=== PATIENT | female | born 1980 | race African-American/Black ===

== ENCOUNTER 2020-07-27 12:17 | Emergency (ER) | payer OTHER ==
[~2020-07-27] VITALS: Ht 167.6 cm; Wt 81.7 kg
--- NOTE | 2020-07-27 14:22 | EKG ---
[address] [address] ELECTROCARDIOGRAM REPORT Name: TALAVERAIVONNE MCCRAY Room #: [facility].R.#: [id number] Admission: Attend Phys: Discharge: Date of : 82 Report #: [id number] [facility] ED Test Date: 2020-07-27 Test Time: 12:20:07 Pat Name: IVONNE TALAVERA Department: Room: Gender: F Reprint Sorter: MICHAEL : 1980 Requested By: Tess Mustafa Order Number: [id number] MD: Sterling Villanueva Measurements Intervals [place] Rate: 88 P: 51 [place]: 156 QRS: 28 QRSD: 74 T: 25 QT: 355 QTc: 430 Interpretive Statements Sinus rhythm No previous ECG available for comparison Electronically Signed On 07-27-2020 14:22:42 PLUNGER SCOOP OPERATOR by Sterling Villanueva [email or web address] <ELECTRONICALLY SIGNED> By: Sterling Villanueva MD, [facility] 07/27/20 1422 1220 1220 Sterling Villanueva MD, FACC /EPI
[2020-07-27 14:50] LABS: URINE BILIRUBIN NEGATIVE (Negative); URINE BLOOD 2+ (Negative); URINE CLARITY CLEAR; URINE COLOR YELLOW; URINE GLUCOSE-RANDOM* 3+ (Negative); URINE KETONES 3+ (Negative); URINE LEUKOCYTES-REFLEX NEGATIVE (Negative); URINE NITRITE-REFLEX NEGATIVE (Negative); URINE PROTEIN (DIPSTICK) NEGATIVE (Negative); URINE UROBILINOGEN 0.2 E.U./dl (0.2-1.0)
[2020-07-27 14:58] LABS: CASTS None Seen /LPF (None Seen); CRYSTALS None Seen /LPF (None Seen); SQUAMOUS 0-3 Few /LPF (0-3)
[2020-07-27 14:59] LABS: URINE WBC-REFLEX 0-5 Rare /HPF (0-5)
[2020-07-27 15:00] LABS: BACTERIA-REFLEX 1-9 Few /HPF (None Seen); URINE RBC 0-2 Rare /HPF (0-2)
[2020-07-27 15:03] LABS: ABSOLUTE NEUTROPHILS 8.7 thou/uL (1.4-8.2); BASOPHILS 0.5 % (0.0-2.0); EOSINOPHILS 0.4 % (0.0-3.0); HEMATOCRIT 39.7 % (37.0-47.0); HEMOGLOBIN 13.6 gm/dL (12.0-15.0); LYMPHOCYTES 17.4 % (24.0-44.0); MCH 29.5 pg (26.0-34.0); MCHC 34.2 g/dL (28.0-37.0); MCV 86.1 fL (80.0-100.0); MONOCYTES 3.3 % (1.0-8.0); PLATELET COUNT 363 thou/uL (150-400); POLYS 78.4 % (36.0-66.0); RBC 4.61 mil/uL (4.20-5.00); RDW 12.7 % (10.5-14.5); WBC 11.1 thou/uL (4.0-11.0)
[2020-07-27 15:09] LABS: ANION GAP 9 mmol/L (7-16); BUN 6 mg/dL (7-18); CALCIUM 9.4 mg/dL (8.5-10.1); CHLORIDE 97 mmol/L (98-107); CO2 23 mmol/L (21-32); CREATININE 0.7 mg/dL (0.6-1.0); GLUCOSE 299 mg/dL (74-106); POTASSIUM 3.7 mmol/L (3.5-5.1); SODIUM 129 mmol/L (136-145)
[2020-07-27 15:19] LABS: ALBUMIN 3.4 g/dL (3.4-5.0); DIRECT BILIRUBIN < 0.1 mg/dL (<0.1-0.2); SGOT 10 U/L (15-37); SGPT 17 U/L (14-59); TOTAL BILIRUBIN 0.4 mg/dL (0.2-1.0); TOTAL PROTEIN 8.1 g/dL (6.4-8.2); TROPONIN-I <0.06 ng/mL (<0.06)
[2020-07-27] MEDS ORDERED: PROTONIX40 M2 PO (17:43)
[2020-07-27] MEDS ORDERED: HYDROCODON-ACE1 EA10 PO (18:02)
[2020-07-27] MEDS ORDERED: KEFLEX500 M1 PO (18:02)
[2020-07-27] MEDS ORDERED: BENTYL 10 MG CA10 M1 PO (18:02)
[2020-07-27] MEDS ORDERED: ZOFRAN ODT4 MG PO (18:02)
[2020-07-27] MEDS ORDERED: FLAGYL500 M1 PO (18:02)
[2020-07-27 18:12] VITALS: BP 147/99
== END 2020-07-27 18:12 | disposition home or self-care (01) ==
LOC: ER 12:17
PROVIDERS: Emergency Medicine
DX: N39.0 Urinary tract infection, site not specified (principal); A59.09 Other urogenital trichomoniasis; R10.13 Epigastric pain; R07.89 Other chest pain; R11.2 Nausea with vomiting, unspecified; E66.9 Obesity, unspecified; K21.9 Gastro-esophageal reflux disease without esophagitis; Z68.29 Body mass index [BMI] 29.0-29.9, adult

== ENCOUNTER 2020-09-29 19:32 | Emergency (ER) | payer OTHER ==
[~2020-09-29] VITALS: Ht 172.7 cm; Wt 106.1 kg
[~2020-09-29 19:32] MED LIST: BENTYL 10 MG CA10 M1 PO; FLAGYL500 M1 PO; HYDROCODON-ACE1 EA10 PO; KEFLEX500 M1 PO; PROTONIX40 M2 PO; ZOFRAN ODT4 MG PO
[2020-09-29 20:29] LABS: URINE BILIRUBIN NEGATIVE (Negative); URINE BLOOD NEGATIVE (Negative); URINE CLARITY CLEAR; URINE COLOR YELLOW; URINE GLUCOSE-RANDOM* 2+ (Negative); URINE KETONES 1+ (Negative); URINE LEUKOCYTES-REFLEX NEGATIVE (Negative); URINE NITRITE-REFLEX NEGATIVE (Negative); URINE PROTEIN (DIPSTICK) TRACE (Negative); URINE UROBILINOGEN 0.2 E.U./dl (0.2-1.0)
[2020-09-29 20:41] LABS: ABSOLUTE NEUTROPHILS 11.5 thou/uL (1.4-8.2); BASOPHILS 0.6 % (0.0-2.0); EOSINOPHILS 0.2 % (0.0-3.0); HEMATOCRIT 41.8 % (37.0-47.0); HEMOGLOBIN 14.7 gm/dL (12.0-15.0); LYMPHOCYTES 18.2 % (24.0-44.0); MCH 30.3 pg (26.0-34.0); MCHC 35.1 g/dL (28.0-37.0); MCV 86.2 fL (80.0-100.0); MONOCYTES 3.6 % (1.0-8.0); PLATELET COUNT 377 thou/uL (150-400); POLYS 77.4 % (36.0-66.0); RBC 4.85 mil/uL (4.20-5.00); RDW 13.2 % (10.5-14.5); WBC 14.9 thou/uL (4.0-11.0)
[2020-09-29 20:49] LABS: CALCIUM 9.3 mg/dL (8.5-10.1); CREATININE 0.8 mg/dL (0.6-1.0); POTASSIUM 4.2 mmol/L (3.5-5.1)
[2020-09-29 20:55] LABS: ALBUMIN 3.4 g/dL (3.4-5.0); DIRECT BILIRUBIN 0.1 mg/dL (<0.1-0.2); TOTAL BILIRUBIN 0.4 mg/dL (0.2-1.0); TOTAL PROTEIN 8.8 g/dL (6.4-8.2)
[2020-09-30] MEDS ORDERED: BENTYL 10 MG CA10 M1 PO (00:32)
[2020-09-30] MEDS ORDERED: LEVAQUIN 500 M500 MG PO (00:32)
[2020-09-30] MEDS ORDERED: PROTONIX40 MG PO (00:32)
[2020-09-30] MEDS ORDERED: FLAGYL500 M1 PO (00:32)
[2020-09-30] MEDS ORDERED: ZOFRAN ODT4 MG PO (00:32)
[2020-09-30 00:39] VITALS: BP 157/95
== END 2020-09-30 00:45 | disposition home or self-care (01) ==
LOC: ER 19:32
PROVIDERS: Physician Assistant
DX: K29.70 Gastritis, unspecified, without bleeding (principal); K80.50 Calculus of bile duct without cholangitis or cholecystitis without obstruction; R73.9 Hyperglycemia, unspecified

== ENCOUNTER 2020-10-01 13:26 | Inpatient (IN) | payer OTHER ==
[~2020-10-01] VITALS: Ht 172.7 cm; Wt 106.6 kg
[~2020-10-01 13:26] MED LIST changes: +LEVAQUIN 500 M500 MG PO; +PROTONIX40 MG PO
[2020-10-01 13:31] VITALS: BP 142/83
[2020-10-01 14:57] LABS: ABSOLUTE NEUTROPHILS 8.9 thou/uL (1.4-8.2); BASOPHILS 0.7 % (0.0-2.0); EOSINOPHILS 0.4 % (0.0-3.0); HEMATOCRIT 40.6 % (37.0-47.0); HEMOGLOBIN 14.3 gm/dL (12.0-15.0); LYMPHOCYTES 16.5 % (24.0-44.0); MCH 30.1 pg (26.0-34.0); MCHC 35.3 g/dL (28.0-37.0); MCV 85.3 fL (80.0-100.0); MONOCYTES 3.6 % (1.0-8.0); PLATELET COUNT 373 thou/uL (150-400); POLYS 78.8 % (36.0-66.0); RBC 4.75 mil/uL (4.20-5.00); RDW 13.4 % (10.5-14.5); WBC 11.2 thou/uL (4.0-11.0)
[2020-10-01 15:02] LABS: CALCIUM 9.1 mg/dL (8.5-10.1); CREATININE 0.8 mg/dL (0.6-1.0); POTASSIUM 4.1 mmol/L (3.5-5.1)
[2020-10-01 15:08] LABS: ALBUMIN 3.3 g/dL (3.4-5.0); TOTAL BILIRUBIN 0.6 mg/dL (0.2-1.0); TOTAL PROTEIN 8.6 g/dL (6.4-8.2)
[2020-10-01 15:46] VITALS: BP 141/81
[2020-10-01 16:06] VITALS: BP 141/86
[2020-10-01 16:50] VITALS: BP 123/80
[2020-10-01 20:05] VITALS: BP 124/83
[2020-10-02 03:59] LABS: URINE BILIRUBIN NEGATIVE (Negative); URINE BLOOD NEGATIVE (Negative); URINE CLARITY CLEAR; URINE COLOR YELLOW; URINE GLUCOSE-RANDOM* NEGATIVE (Negative); URINE KETONES 1+ (Negative); URINE LEUKOCYTES-REFLEX NEGATIVE (Negative); URINE NITRITE-REFLEX NEGATIVE (Negative); URINE PROTEIN (DIPSTICK) NEGATIVE (Negative); URINE SPECIFIC GRAVITY 1.015 (1.005-1.035); URINE UROBILINOGEN 0.2 E.U./dl (0.2-1.0)
--- NOTE | 2020-10-02 04:24 | NUR ---
PT C/O ABD PAIN,MANAGED WITH MED.PT UP ADLIB IN HER ROOM.PT NPO SINCE ADMIT,MOUTH SWAB PROVIDED.PT HAVING EGD IN THE AM.UA GOTTEN,SENT DOWN TO THE LAB.IVF INFUSING ORDERED.PT SLEEPING ON HER BED AT THIS TIME.CALL LIGHT WITHIN REACH.
[2020-10-02 09:20] VITALS: BP 143/94
--- NOTE | 2020-10-02 11:18 | NUR ---
Assumed care of pt at 0700. Pt a&ox4. Pain controlled with prn pain meds. IVF infusing. GI consulted. Up ad monae. Call light within reach. Will continue to monitor.
[2020-10-02 16:45] VITALS: BP 128/74
[2020-10-02 20:00] VITALS: BP 129/89
--- NOTE | 2020-10-03 03:19 | NUR ---
PT C/O PAIN,MANAGED WITH MED.PT UP ADLIB IN HER ROOM.NO COMPLIANT OF N/V NOTED.PT RESTING ON HER BED AT THIS TIME.CALL LIGHT WITHIN REACH.
[2020-10-03 05:18] LABS: ABSOLUTE NEUTROPHILS 5.8 thou/uL (1.4-8.2); BASOPHILS 1.7 % (0.0-2.0); EOSINOPHILS 1.3 % (0.0-3.0); HEMATOCRIT 37.5 % (37.0-47.0); HEMOGLOBIN 12.7 gm/dL (12.0-15.0); LYMPHOCYTES 40.1 % (24.0-44.0); MCH 29.3 pg (26.0-34.0); MCV 86.1 fL (80.0-100.0); MONOCYTES 6.2 % (1.0-8.0); PLATELET COUNT 335 thou/uL (150-400); POLYS 50.7 % (36.0-66.0); RBC 4.35 mil/uL (4.20-5.00); RDW 13.3 % (10.5-14.5); WBC 11.5 thou/uL (4.0-11.0)
[2020-10-03 05:28] LABS: PROTIME 11.3 Seconds (9.3-11.4)
[2020-10-03 06:03] LABS: ALBUMIN 2.8 g/dL (3.4-5.0); ANION GAP 10 mmol/L (7-16); BUN 5 mg/dL (7-18); CALCIUM 8.3 mg/dL (8.5-10.1); CHLORIDE 102 mmol/L (98-107); CHOLESTEROL 141 mg/dL (<200); CO2 22 mmol/L (21-32); CREATININE 0.6 mg/dL (0.6-1.0); DIRECT BILIRUBIN < 0.1 mg/dL (<0.1-0.2); GLUCOSE 258 mg/dL (74-106); HDL CHOLESTEROL 34 mg/dL (>40); LDL CHOLESTEROL 89 mg/dL (<100); MAGNESIUM 1.7 mg/dL (1.8-2.4); PHOSPHORUS 3.4 mg/dL (2.5-4.9); POTASSIUM 3.7 mmol/L (3.5-5.1); SGOT 14 U/L (15-37); SGPT 13 U/L (30-65); SODIUM 134 mmol/L (136-145); TC:HDL 4.1 Ratio (Not establshd); TOTAL BILIRUBIN 0.4 mg/dL (0.2-1.0); TOTAL PROTEIN 7.3 g/dL (6.4-8.2); TRIGLYCERIDE 92 mg/dL (<150); VLDL 18 mg/dL (<40)
[2020-10-03 07:15] VITALS: BP 134/78
[2020-10-03 09:22] VITALS: BP 134/78
[2020-10-03 15:57] VITALS: BP 113/68
--- NOTE | 2020-10-03 16:15 | NUR ---
PT A&OX4, VSS, PAIN RUQ ABDOMEN AND RIGHT FLANK. PATIENT TOLERATING FULL LIQUIDS. PER DR TIDWELL PT CANT HAVE ANY NARCOTICS AFTER 4PM AND NPO AFTER MIDNIGHT. NO WOUNDS ON FEET. IV INFILTRATED IN LEFT AC AND NEW IV PLACED RIGHT FOREARM. NO SIGNS OF DISTRESS. PATIENT DENIES N/V. WILL CONTINUE TO MONITOR.
[2020-10-03 19:54] VITALS: BP 155/105
--- NOTE | 2020-10-04 03:17 | NUR ---
PT AMBULATING TO BATHROOM INDEPENDENTLY AND IS TOLERATING WELL. FENTANYL PROVIDING PAIN RELIEF. RESTING COMFORTABLY. NO NEEDS VOICED. CALL LIGHT WITHIN REACH. FREQUENT OBSERVATION.
[2020-10-04 08:10] VITALS: BP 135/84
[2020-10-04 18:06] VITALS: BP 151/82
--- NOTE | 2020-10-04 18:25 | NUR ---
PT ASSESSED AT START OF SHIFT. HAD PIPIDA SCAN THIS AM AND WAS POSITIVE. FILIBERTO CONSULTED FOR LIZETH. DR. DE LA CRUZ IN TO SEE PT AND DISCUSS PLAN OF CARE. NO EGD FOR NOW. PAIN SOME BETTER BUT INCREASED THIS AFTERNOON. TORODOL GIVEN W/ GOOD RELIEF. STAT COVID TEST SENT TO LAB.
[2020-10-04 20:07] VITALS: BP 140/89
--- NOTE | 2020-10-05 02:47 | NUR ---
ASSESSMENT COMPLETED. PT IS PLEASANT. TRANSFERED FROM [facility] AT SHIFT CHANGE. PT IS ALERT AND ORIENTED X 4. ATE SOME SANDWICH-NO NAUSEA OR VOMITING. NPO AFTER MIDNOC. AWARE OF SURGERY TOMORROW. PT IS CALM AND APPEARS TO BE IN NO DISTRESS.NO PAIN MEDS GIVEN SO FAR. CALL LIGHT WITHIN REACH.
[2020-10-05 07:45] VITALS: BP 128/80
[2020-10-05] MEDS ORDERED: ACETAMINOPHEN325 M1 PO (10:38)
[2020-10-05] MEDS ORDERED: PROTONIX40 M2 PO (10:38)
[2020-10-05] MEDS ORDERED: NORCO5 PO (10:40)
--- NOTE | 2020-10-05 11:44 | NUR ---
ASSESSMENT: CM REVIEWED CHART AND SPOKE WITH PATIENT. PT IS ALERT AND ORIENTED X4. PT REPORTS LIVING IN A HOUSE WITH HER BOYFRIEND, SON, SONS GIRLFRIEND. PT REPORTS SHE HAS NO STEPS TO ENTER THE HOME OR ONCE INSIDE. PT STATES SHE IS FULLY INDEPENDENT WITH ADLS AND AMBULATION. PT HAS NO HX OF HH OR SNF. PT WAS ADMITTED DUE TO ABDOMINAL PAIN. PT IS TO HAVE A LAP ARMINDA TODAY AND IF ALL GOES WELL IS A POTENTIAL DISCHARGE TODAY VS DISCHARGE TOMORROW. PT DOES NOT ANTICIPATE HAVING ANY NEEDS FROM CM. CM WILL CONTINUE TO FOLLOW TO ASSIST NEEDED.
--- NOTE | 2020-10-05 13:01 | NUR ---
Assumed pt care this am, Vs stable, received NPO for possible procedure in the pm. Pre op called and mentioned she is scheduled for lap yesy at 4 pm. Up ad monae, vs stable.
[2020-10-05 16:25] VITALS: BP 126/75
[2020-10-05 19:38] VITALS: BP 135/78
[2020-10-06] VITALS (8 sets, daily range): BP systolic 129–148; BP diastolic 63–100
--- NOTE | 2020-10-06 04:14 | NUR ---
RECEIVED CARE OF THIS PATIENT AT 1900. PATIENT ALERT AND ORIENTED X4. UP AD ZAKIYA. NPO SINCE HI FOR SURGERY THIS AM. C/O PAIN, MED GIVEN. FLUIDS INFUSING RFA. SLEPT OFF AND ON DURING NIGHT.
--- NOTE | 2020-10-06 13:48 | NUR ---
ON-GOING ASSESSMENT: CM REVIEWED CHART AND SPOKE WITH PATIENT. PT IS LIKELY DISCHARGE TODAY PENDING TOLERATING HER DIET. PT REPORTS HER FIANCE IS HERE AND WILL PROVIDE TRANSPORTATION HOME. PT REPORTS HAVING NO NEEDS FROM CM.
--- NOTE | 2020-10-06 19:43 | NUR ---
Patient had regular diet, tolerated well, no n/v, patient claimed" i am good", voicing that she was ready to go home. Surgical sites checked, no reddness, no swelling, no bleeding.
--- NOTE | 2020-10-08 18:06 | PATH ---
[facility] [address] [place] [address] PATHOLOGY RPT PROCEDURE Name: IVONNE TALAVERA Room #: 439-P [facility] [place] M.R.#: [id number] Admission: 10/01/20 Date of : 82 Discharge: 10/06/20 Report #: [id number] Path Case #: [id number] [facility] Accession Number: [id number] . 01 Material submitted: . gallbladder - GALLBLADDER . 01 Clinical history: . LAPAROSCOPIC CHOLECYSTECTOMY CHOLECYSTITIS . 02 Diagnosis: Gallbladder, cholecystectomy: - Mild chronic cholecystitis. (IUV:poultry cleaner; 10/08/2020) R 10/08/2020 1655 Local . 02 Electronically signed: . Chante Lugo MD, Pathologist NPI- [id number] . 01 Gross description: . Fixative: Formalin Labeled: Gallbladder Specimen received: Intact cholecystectomy specimen Dimensions: 8.1 x 4.5 x 4.2 cm Serosa: Bacon-green and smooth Lymph node: No Mucosa: Dark green and velvety Average wall thickness: 0.1 cm Calculi: None identified within the gallbladder or container Abnormalities: No A1- Glass Embosser body, fundus, and the cystic duct margin. ([facility]; 10/07/2020) [facility] 10/07/2020 1229 Local . 02 Pathologist provided ICD-10: K81.1 . 02 CPT . 894389 Specimen Comment: A courtesy copy of this report has been sent to [phone] Specimen Comment: [phone] Specimen Comment: Report sent to / DR SAHU Performed at: [address] [address] PATHOLOGY RPT PROCEDURE Name: IVONNE TALAVERA Room #: 439-P [facility] [place] .R.#: [id number] Admission: 10/01/20 Date of : 82 Discharge: 10/06/20 Report #: [id number] Path Case #: [id number] [address] [id number] MD Frankie Hendrickson MD Phone: [phone] Performed at: [address] [id number] MD Chante Lugo MD Phone: [phone]
--- NOTE | 2020-10-12 13:07 | O ---
[facility] [place] [address] OPERATIVE REPORT Name: IVONNE TALAVERA Room #: 439-P [facility] IN M.R.#: [id number] Admission: 10/01/20 Attend Phys: Que Fields MD Discharge: 10/06/20 Date of : 82 Report #: [id number] THIS REPORT FOR: cc: KIMMY - No family physician/PCP FAM - No family physician/PCP Jeff Tavera MD ~ DATE OF SERVICE: 10/06/2020 PREOPERATIVE DIAGNOSES: Chronic cholecystitis and biliary dyskinesia. POSTOPERATIVE DIAGNOSES: Chronic cholecystitis and biliary dyskinesia. PROCEDURE: Laparoscopic cholecystectomy. SURGEON: Jeff Tavera MD ANESTHESIA: General. ESTIMATED BLOOD LOSS: Minimal. SPECIMEN: Gallbladder. DESCRIPTION OF PROCEDURE: After informed consent was obtained, the patient was brought to the operating room and placed supine. SCDs were placed and working, preoperative antibiotics were administered, general anesthesia was induced. The abdomen was prepped and draped in the usual sterile fashion. A 10 mm incision was made above the umbilicus. Fascia was incised and a trocar was placed. Pneumoperitoneum was established. Three right upper quadrant 5 mm ports were placed. Gallbladder was then grasped at the fundus and retracted cephalad. Infundibulum was grasped and retracted laterally. I dissected out the cystic duct and the cystic artery as well as the cystic plate. Cystic duct and artery were clipped and ligated leaving 2 clips on the remaining duct and one on the remaining artery. Gallbladder was then taken off the liver bed with electrocautery. It was placed into an Endopouch and removed. The fascia was then closed with a ihtevm-if-zbqkd 0 Vicryl. Skin was closed with 4-0 Monocryl. Incisions were sealed with Steri-Strips. COMPLICATIONS: None. DISPOSITION: The patient was taken to recovery in satisfactory condition. <ELECTRONICALLY SIGNED> By: Jeff Tavera MD 10/12/20 1307 1013 1021 Jeff Tavera MD /nt
== END 2020-10-06 17:50 | disposition home or self-care (01) | DRG 418 ==
LOC: ER 13:26 → 4W 16:13 → 4S 16:13 → 4W 16:13 → EROBS 16:13 → 4W 16:19 → 4S 10-04 19:05
PROVIDERS: Anesthesiology; Internal Medicine; Physician Assistant; ADMIT Hospitalist; ATTEND Hospitalist
PROC: 0FT44ZZ Resection of Gallbladder, Percutaneous Endoscopic Approach (ICD-10-PCS; principal; 2020-10-06)
DX: K81.1 Chronic cholecystitis (principal); E87.1 Hypo-osmolality and hyponatremia; E44.0 Moderate protein-calorie malnutrition; K59.00 Constipation, unspecified; E87.8 Other disorders of electrolyte and fluid balance, not elsewhere classified; K21.9 Gastro-esophageal reflux disease without esophagitis; E66.9 Obesity, unspecified; Z20.822 Contact with and (suspected) exposure to COVID-19; Z68.35 Body mass index [BMI] 35.0-35.9, adult; Z79.899 Other long term (current) drug therapy
CPT/HCPCS: 10045; 10047; 10102; 50010; 50101; 50411; 50555; 51489; 52265; 52266; 53307; 53312; 53314; 55245; 56462; 56525; 56526; 58574; 62110; 62900; 70005

== ENCOUNTER → 2020-12-02 | Outpatient (CLI) | payer OTHER ==
[~2020-12-02] MED LIST changes: +ACETAMINOPHEN325 M1 PO; +NORCO5 PO
== END ==
LOC: CAT 08:29
PROVIDERS: ATTEND Surgery
DX: K76.0 Fatty (change of) liver, not elsewhere classified (principal)

== ENCOUNTER → 2021-01-03 | Outpatient (CLI) | payer OTHER | LOC: NUC 08:07 | PROVIDERS: ATTEND Surgery | DX: R10.9 Unspecified abdominal pain (principal); Z90.49 Acquired absence of other specified parts of digestive tract ==

== ENCOUNTER 2021-02-04 21:25 | Emergency (ER) | payer OTHER ==
[~2021-02-04] VITALS: Ht 172.7 cm; Wt 95.3 kg
[2021-02-04] MEDS ORDERED: CLARITHROMYCIN500 MG PO (21:38)
[2021-02-04] MEDS ORDERED: AMOXICILLIN 50500 MG PO (21:38)
[2021-02-04 23:45] LABS: ABSOLUTE NEUTROPHILS 6.6 thou/uL (1.4-8.2); BASOPHILS 0.9 % (0.0-2.0); EOSINOPHILS 0.6 % (0.0-3.0); HEMOGLOBIN 13.7 gm/dL (12.0-15.0); LYMPHOCYTES 47.2 % (24.0-44.0); MCH 30.3 pg (26.0-34.0); MCHC 35.1 g/dL (28.0-37.0); MCV 86.2 fL (80.0-100.0); MONOCYTES 5.7 % (1.0-8.0); PLATELET COUNT 441 thou/uL (150-400); POLYS 45.6 % (36.0-66.0); RBC 4.52 mil/uL (4.20-5.00); RDW 13.3 % (10.5-14.5); WBC 14.5 thou/uL (4.0-11.0)
[2021-02-04 23:55] LABS: ANION GAP 14 mmol/L (7-16); BUN 7 mg/dL (7-18); CALCIUM 9.4 mg/dL (8.5-10.1); CHLORIDE 99 mmol/L (98-107); CO2 22 mmol/L (21-32); CREATININE 0.7 mg/dL (0.6-1.0); GLUCOSE 204 mg/dL (74-106); POTASSIUM 3.7 mmol/L (3.5-5.1); SODIUM 135 mmol/L (136-145)
[2021-02-05 00:10] LABS: ALBUMIN 3.5 g/dL (3.4-5.0); LIPASE 91 U/L (73-393); SGOT 13 U/L (15-37); SGPT 13 U/L (30-65); TOTAL BILIRUBIN 0.6 mg/dL (0.2-1.0); TOTAL PROTEIN 8.5 g/dL (6.4-8.2); TROPONIN-I <0.06 ng/mL (<0.06)
[2021-02-05] MEDS ORDERED: NORCO5 PO (00:34)
[2021-02-05 01:00] VITALS: BP 150/85
--- NOTE | 2021-02-06 14:27 | EKG ---
[address] [address] [address] [address] ELECTROCARDIOGRAM REPORT Name: IVONNE TALAVERA 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: UNKNOWN : 1980 Requested By: Jesse Mims Order Number: [id number] MD: Keo Deleon Measurements Intervals [place] Rate: 106 P: 76 [place]: 133 QRS: 42 QRSD: 70 T: -16 QT: 327 QTc: 435 Interpretive Statements Sinus tachycardia Nonspecific ST and T wave abnormality Compared to ECG 07/27/2020 12:20:[address] and T wave abnormality is now present Electronically Signed On 02-06-2021 14:27:28 CDT by Keo Deleon [email or web address] <ELECTRONICALLY SIGNED> By: Keo Deleon MD, [facility] 02/06/21 1427 2139 38 Keo Deleon MD, FACC /EPI
== END 2021-02-05 01:10 | disposition home or self-care (01) ==
LOC: ER 21:25
PROVIDERS: Emergency Medicine
DX: G89.29 Other chronic pain (principal); R07.89 Other chest pain; Z79.1 Long term (current) use of non-steroidal anti-inflammatories (NSAID)

== ENCOUNTER 2021-02-18 22:29 | Inpatient (IN) | payer OTHER ==
[~2021-02-18] VITALS: Ht 172.7 cm; Wt 97.5 kg
--- NOTE | ~2021-02-18 | EMS ---
[place] [address] EMS Patient Care Report Name: IVONNE TALAVERA Room #: 451-P [facility] IN M.R.#: [id number] Admission: 02/19/21 Attend Phys: Jeff Tavera, Discharge: 02/20/21 Date of : 82 Report #: [id number] THIS REPORT FOR: //name// Report Transmitted: 02/21/2021 12:04 EMS Care Summary [place], [place]/[facility] Incident [id number] @ 02/18/2021 22:00 Incident [address] [place] [address] Patient IVONNE TALAVERA Female, 40 Years 1980 Patient Address [address] [place] [address] Patient History None Reported, Patient Allergies No known allergies, Patient Medications Protonix, Chief Complaint Upper Abdominal Pain Disposition Transported No Lights/[place] Dispatch Reason Sick Person Transported To [facility] Narrative pt states that she started having abdominal pain yesterday along w/ nausea/vomiting. pt states that her symptoms worsened today. pt describes pain as sharp in nature. pt locates pain in her upper abdomen. pt states that her pain radiates up sometimes. pt denies c/p and SOB. [address] [address] EMS Patient Care Report Name: IVONNE TALAVERA Room #: 451-P [facility] IN ..#: [id number] Admission: 02/19/21 Attend Phys: Jeff Tavera, Discharge: 02/20/21 Date of : 82 Report #: [id number] upon ems arrival, pt found sitting upright on couch. pt w/ family and P42 crew. pt assisted to stretcher by ems and P42 crew. Initial Vitals @22:14P: 98,R: 20,BP: 142/94,Pain: 10/10,GCS: 15,SpO2: 100,Revised Trauma: 12, Assessments @22:07MENTAL:Event Oriented,Person Oriented,Time Oriented,Place Oriented,SKIN:HEENT:Eyes: Right Pupil: 3-mm,Eyes: Left Pupil: 3-mm,LUNG SOUNDS:Right Lower: Guarding,Right Lower: Tenderness,ABDOMEN:Right Lower: Guarding,Right Lower: Tenderness,PELVIS//GI:EXTREMITIES:Capillary Refill: Left Upper: < 2 Sec,PULSE:Radial: 2+ Normal,NEURO: Impression Abdominal Pain Procedures @22:07ALS AssessmentResponse: UnchangedSucceeded Timeline 21:59,Call Received 21:59,Dispatch Notified 22:00,Dispatched 22:01,En Route 22:05,On Scene 22:07,At Patient 22:07,ALS Assessment,Response: UnchangedSucceeded, 22:14,Depart Scene 22:14,BP: 142/94 M,PULSE: 98,RR: 20 R,SPO2: 100 Ox,ETCO2: ,BG: ,PAIN: 10,GCS: 15, 22:26,At Destination 22:38,Call Closed Disclaimer v1.1 Copyright 2020 [employer] This EMS Care Summary contains data elements from the applicable legal record (which may be displayed differently). It is designed to provide pertinent information for the following purposes: continuity of care, clinical quality, and state data reporting. The complete legal record is available to ED staff and administrators of the receiving hospital in [employer]'s Patient Tracker. All data is provided "as is."
--- NOTE | ~2021-02-18 | O ---
[facility] [place] [address] OPERATIVE REPORT Name: IVONNE TALAVERA Room #: 451-P [facility] IN M.R.#: [id number] Admission: 02/19/21 Attend Phys: Jeff Tavera, Discharge: Date of : 82 Report #: [id number] THIS REPORT FOR: cc: Mj Knight James A. DO Patterson,Jeff Chao MD ~ DATE OF SERVICE: 02/19/2021 PREOPERATIVE DIAGNOSIS: Acute appendicitis. POSTOPERATIVE DIAGNOSIS: Acute appendicitis. OPERATION: Laparoscopic appendectomy. SURGEON: Jeff Tavera MD ANESTHESIA: General. ESTIMATED BLOOD LOSS: Minimal. SPECIMENS: Appendix. DESCRIPTION OF PROCEDURE: After informed consent was obtained, the patient was brought to the operating room and placed supine. SCDs were placed and working, preoperative antibiotics were administered, general anesthesia was induced. The abdomen was prepped and draped in the usual sterile fashion. A 5 mm incision was made in the left upper quadrant. A 5 mm trocar was placed under direct vision. Pneumoperitoneum was established. Left lower quadrant 5 mm trocar was placed, and in a right upper quadrant, 10 mm trocar was placed. The appendix was visualized. It was grasped and retracted anteriorly. I freed it up from its lateral attachments using cautery. I then dissected out the mesoappendix. The mesoappendix was ligated using the LUCIANA leonardo load stapler. There was good hemostasis. Base of the appendix was stapled off with a LUCIANA blue load stapler. Appendix was then placed into an Endopouch and removed. Fascia in the right upper quadrant was closed with a bctptf-dy-qauvl 0 Vicryl. Skin was then closed with a 4-0 Monocryl. Incisions were dressed with Steri-Strips. COMPLICATIONS: None. DISPOSITION: The patient was taken to recovery in satisfactory condition. By: 1026 1331 Jeff Tavera MD /nt
[~2021-02-18 22:29] MED LIST changes: +AMOXICILLIN 50500 MG PO; +CLARITHROMYCIN500 MG PO
[2021-02-18 22:32] VITALS: BP 134/90
[2021-02-19] VITALS (9 sets, daily range): BP systolic 125–156; BP diastolic 76–101
[2021-02-19 01:07] LABS: ABSOLUTE NEUTROPHILS 9.1 thou/uL (1.4-8.2); BASOPHILS 0.8 % (0.0-2.0); EOSINOPHILS 0.3 % (0.0-3.0); HEMOGLOBIN 13.2 gm/dL (12.0-15.0); LYMPHOCYTES 25.1 % (24.0-44.0); MCH 30.9 pg (26.0-34.0); MCHC 35.7 g/dL (28.0-37.0); MCV 86.6 fL (80.0-100.0); MONOCYTES 2.5 % (1.0-8.0); PLATELET COUNT 350 thou/uL (150-400); POLYS 71.3 % (36.0-66.0); RBC 4.27 mil/uL (4.20-5.00); RDW 13.5 % (10.5-14.5); WBC 12.8 thou/uL (4.0-11.0)
[2021-02-19 01:18] LABS: CALCIUM 9.1 mg/dL (8.5-10.1); CREATININE 0.6 mg/dL (0.6-1.0); POTASSIUM 4.1 mmol/L (3.5-5.1)
[2021-02-19 01:24] LABS: ALBUMIN 3.3 g/dL (3.4-5.0); TOTAL BILIRUBIN 0.5 mg/dL (0.2-1.0)
--- NOTE | 2021-02-19 10:18 | NUR ---
(Wilmer) called and told the staff that according to him, the Appendicitis is mininimal, the staff told Dr. Tavera about it. Patient got regular diet order, but patient claimed to the staff that she did not eat or drink anything for the breakfast.
--- NOTE | 2021-02-19 13:24 | NUR ---
Patient got back from the surgery around 1pm. surgery sites checked, dry and intact. denied pain, A/O 4.
[2021-02-20 08:56] VITALS: BP 137/88
[2021-02-20] MEDS ORDERED: NORCO5 PO (09:08)
--- NOTE | 2021-02-20 09:42 | NUR ---
PT IS A&O*4, ROOM AIR, NO PAIN AT THIS TIME. SUGERY INCISION INTACT. GET UP BY ZAKIYA. SNR ON TELE. WILL KEEP MONITOR PATIENT SAFETY.
[2021-02-20 09:50] VITALS: BP 137/88
--- NOTE | 2021-02-22 15:08 | PATH ---
[facility] [address] [place] [address] PATHOLOGY RPT PROCEDURE Name: IVONNE TALAVERA Room #: 451-P [facility] IN M.R.#: [id number] Admission: 02/19/21 Date of : 82 Discharge: 02/20/21 Report #: [id number] Path Case #: [id number] L[facility] Accession Number: [id number] . 01 Material submitted: . appendix - APPENDIX . 01 Clinical history: . LAPAROSCOPIC APPENDECTOMY . 02 Diagnosis: Appendix, appendectomy: - Acute and chronic appendicitis with acute serositis. (IUV:pit; 02/22/2021) [facility] 02/22/2021 1306 Local . 02 Electronically signed: . Chante Lugo MD, Pathologist NPI- [id number] . 01 Gross description: . Fixative: Formalin Labeled: Appendix Appendix length: 8.8 cm Appendix diameter: 0.7 cm Mesoappendix: Abundant Proximal margin: Inked black Serosa: De Anda-rueda, dusky and hemorrhagic without fibrinous exudate Mucosa: Dusky and hemorrhagic Luminal diameter: up to 0.5 cm containing soft fecal material Perforation: None Lesions/abnormalities: None Wall thickness: averages 0.2 cm . A1-A2: Lieutenant General sections of appendix to include the entirety of the distal tip and margin([place]; 02/21/2021) DKA/DKA 02/21/2021 1302 Local . 02 Pathologist provided ICD-10: K35.20 . 02 CPT . 374080 Specimen Comment: A courtesy copy of this report has been sent to [phone] Specimen Comment: Report sent to Performed at: [address] [address] PATHOLOGY RPT PROCEDURE Name: IVONNE TALAVERA Room #: 451-P [facility] IN [facility]#: [id number] Admission: 02/19/21 Date of : 82 Discharge: 02/20/21 Report #: [id number] Path Case #: [id number] [address] [id number] MD Frankie Hendrickson MD Phone: [phone] Performed at: [address] [id number] MD Chante Lugo MD Phone: [phone]
== END 2021-02-20 10:00 | disposition home or self-care (01) | DRG 343 ==
LOC: ER 22:29 → EROBS 02-19 03:00 → 4W 02-19 07:25
PROVIDERS: Emergency Medicine; ADMIT Surgery; ATTEND Surgery
PROC: 0DTJ4ZZ Resection of Appendix, Percutaneous Endoscopic Approach (ICD-10-PCS; principal; 2021-02-19)
DX: K35.80 Unspecified acute appendicitis (principal); Z20.822 Contact with and (suspected) exposure to COVID-19; Z90.49 Acquired absence of other specified parts of digestive tract; Z79.899 Other long term (current) drug therapy
CPT/HCPCS: 10045; 50010; 50101; 50411; 50555; 50739; 50740; 51489; 52265; 52266; 53307; 53312; 53314; 54022; 56525; 56526; 58574; 58867; 62110; 62900; 70005

== ENCOUNTER → 2021-03-07 | Outpatient (CLI) | payer OTHER | LOC: CAT 03-04 14:24 | PROVIDERS: ATTEND Family Medicine | DX: M25.511 Pain in right shoulder (principal); M54.2 Cervicalgia; R59.0 Localized enlarged lymph nodes ==

== ENCOUNTER 2021-04-27 10:11 | Emergency (ER) | payer OTHER ==
[~2021-04-27] VITALS: Ht 172.7 cm; Wt 92.5 kg
[2021-04-27 11:10] LABS: ABSOLUTE NEUTROPHILS 4.1 thou/uL (1.4-8.2); BASOPHILS 0.7 % (0.0-2.0); EOSINOPHILS 1.9 % (0.0-3.0); LYMPHOCYTES 39.3 % (24.0-44.0); MCH 29.8 pg (26.0-34.0); MCHC 34.1 g/dL (28.0-37.0); MCV 87.2 fL (80.0-100.0); MONOCYTES 6.6 % (1.0-8.0); PLATELET COUNT 372 thou/uL (150-400); POLYS 51.5 % (36.0-66.0); RBC 4.35 mil/uL (4.20-5.00); RDW 13.1 % (10.5-14.5)
[2021-04-27 11:26] LABS: CALCIUM 8.8 mg/dL (8.5-10.1); CREATININE 0.6 mg/dL (0.6-1.0)
[2021-04-27 11:28] LABS: POTASSIUM 4.9 mmol/L (3.5-5.1)
[2021-04-27 11:33] LABS: TOTAL BILIRUBIN 0.5 mg/dL (0.2-1.0); TOTAL PROTEIN 7.3 g/dL (6.4-8.2)
[2021-04-27] MEDS ORDERED: PROTONIX40 MG PO (11:53)
[2021-04-27] MEDS ORDERED: CARAFATE 11 GM/10 M1 PO (11:53)
[2021-04-27] MEDS ORDERED: ONDANSETRON HCL4 M2 PO (11:53)
[2021-04-27 12:45] VITALS: BP 156/98
[2021-04-28] MEDS ORDERED: NORCO5 PO ×5 (13:06→17:23)
== END 2021-04-27 12:45 | disposition home or self-care (01) ==
LOC: ER 10:11
PROVIDERS: Emergency Medicine
DX: R10.13 Epigastric pain (principal); Z90.49 Acquired absence of other specified parts of digestive tract

== ENCOUNTER 2021-04-28 09:39 | Emergency (ER) | payer OTHER ==
[~2021-04-28] VITALS: Ht 172.7 cm; Wt 92.5 kg
[~2021-04-28 09:39] MED LIST changes: +CARAFATE 11 GM/10 M1 PO; +ONDANSETRON HCL4 M2 PO
[2021-04-28 11:11] LABS: ABSOLUTE NEUTROPHILS 4.9 thou/uL (1.4-8.2); BASOPHILS 0.5 % (0.0-2.0); EOSINOPHILS 0.8 % (0.0-3.0); HEMATOCRIT 37.2 % (37.0-47.0); LYMPHOCYTES 39.9 % (24.0-44.0); MCH 30.3 pg (26.0-34.0); MCV 86.6 fL (80.0-100.0); PLATELET COUNT 357 thou/uL (150-400); POLYS 53.8 % (36.0-66.0); RDW 12.6 % (10.5-14.5); WBC 9.1 thou/uL (4.0-11.0)
[2021-04-28 11:17] LABS: CREATININE 0.7 mg/dL (0.6-1.0)
[2021-04-28 11:23] LABS: ALBUMIN 3.2 g/dL (3.4-5.0); TOTAL BILIRUBIN 0.3 mg/dL (0.2-1.0); TOTAL PROTEIN 7.8 g/dL (6.4-8.2)
[2021-04-28] MEDS ORDERED: NORCO5 PO ×5 (13:06→17:23)
[2021-04-28 13:43] VITALS: BP 161/97
== END 2021-04-28 13:44 | disposition home or self-care (01) ==
LOC: ER 09:39
PROVIDERS: Emergency Medicine
DX: R10.13 Epigastric pain (principal); Z90.89 Acquired absence of other organs; Z79.891 Long term (current) use of opiate analgesic; Z79.1 Long term (current) use of non-steroidal anti-inflammatories (NSAID); Z79.899 Other long term (current) drug therapy

== ENCOUNTER 2021-07-14 15:14 | Emergency (ER) | payer OTHER ==
[~2021-07-14] VITALS: Ht 172.7 cm; Wt 88.5 kg
[2021-07-14 16:46] LABS: URINE BLOOD 3+ (Negative); URINE CLARITY SL CLOUDY; URINE COLOR YELLOW; URINE GLUCOSE-RANDOM* TRACE (Negative); URINE KETONES 1+ (Negative); URINE LEUKOCYTES-REFLEX NEGATIVE (Negative); URINE NITRITE-REFLEX NEGATIVE (Negative); URINE PROTEIN (DIPSTICK) 2+ (Negative); URINE SPECIFIC GRAVITY >= 1.030 (1.005-1.035)
[2021-07-14 16:55] LABS: ICTOTEST (BILI CONFIRMATORY) Negative (Negative); URINE BILIRUBIN NEGATIVE (Negative)
[2021-07-14 17:07] LABS: CASTS None Seen /LPF (None Seen); MUCUS >6 Heavy strn/LPF (None Seen); SQUAMOUS 4-10 Moderate /LPF (0-3)
[2021-07-14 17:08] LABS: BACTERIA-REFLEX 1-9 Few /HPF (None Seen); CRYSTALS None Seen /LPF (None Seen); URINE RBC >20 Many /HPF (NONE SEEN); URINE WBC-REFLEX 0-5 Rare /HPF (0-5)
[2021-07-14 18:13] LABS: ABSOLUTE NEUTROPHILS 4.7 thou/uL (1.4-8.2); EOSINOPHILS 1.6 % (0.0-3.0); HEMATOCRIT 46.6 % (37.0-47.0); HEMOGLOBIN 15.7 gm/dL (12.0-15.0); MCH 29.7 pg (26.0-34.0); MCHC 33.6 g/dL (28.0-37.0); MCV 88.2 fL (80.0-100.0); MONOCYTES 5.5 % (1.0-8.0); PLATELET COUNT 398 thou/uL (150-400); POLYS 47.9 % (36.0-66.0); RBC 5.29 mil/uL (4.20-5.00); RDW 13.1 % (10.5-14.5); WBC 9.7 thou/uL (4.0-11.0)
[2021-07-14 18:20] LABS: ANION GAP 13 mmol/L (7-16); BUN 10 mg/dL (7-18); CALCIUM 9.6 mg/dL (8.5-10.1); CHLORIDE 98 mmol/L (98-107); CO2 25 mmol/L (21-32); CREATININE 0.7 mg/dL (0.6-1.0); GLUCOSE 245 mg/dL (74-106); SODIUM 136 mmol/L (136-145)
[2021-07-14 18:34] LABS: ALBUMIN 3.7 g/dL (3.4-5.0); DIRECT BILIRUBIN < 0.1 mg/dL (<0.1-0.2); LIPASE 64 U/L (73-393); SGOT 15 U/L (15-37); SGPT 16 U/L (30-65); TOTAL BILIRUBIN 0.3 mg/dL (0.2-1.0)
[2021-07-14] MEDS ORDERED: PERCOCET 5-3251 EACH PO (19:37)
[2021-07-14 19:40] VITALS: BP 134/87
== END 2021-07-14 19:51 | disposition home or self-care (01) ==
LOC: ER 15:14
PROVIDERS: Student in an Organized Health Care Education/Training Program
DX: R10.13 Epigastric pain (principal); Z79.891 Long term (current) use of opiate analgesic; Z79.899 Other long term (current) drug therapy

== ENCOUNTER 2021-08-29 11:35 | Emergency (ER) | payer OTHER ==
[~2021-08-29] VITALS: Ht 172.7 cm; Wt 89.4 kg
[~2021-08-29 11:35] MED LIST changes: +PERCOCET 5-3251 EACH PO
[2021-08-29] MEDS ORDERED: AMITRIPTYLINE H25 M3 PO (11:43)
[2021-08-29 13:42] LABS: ABSOLUTE NEUTROPHILS 5.5 thou/uL (1.4-8.2); BASOPHILS 1.4 % (0.0-2.0); HEMATOCRIT 36.2 % (37.0-47.0); HEMOGLOBIN 12.7 gm/dL (12.0-15.0); LYMPHOCYTES 33.8 % (24.0-44.0); MCH 30.2 pg (26.0-34.0); MCHC 35.2 g/dL (28.0-37.0); MCV 85.9 fL (80.0-100.0); MONOCYTES 8.6 % (1.0-8.0); PLATELET COUNT 342 thou/uL (150-400); POLYS 55.2 % (36.0-66.0); RBC 4.22 mil/uL (4.20-5.00); RDW 12.9 % (10.5-14.5)
[2021-08-29 13:53] LABS: CREATININE 0.7 mg/dL (0.6-1.0); POTASSIUM 4.5 mmol/L (3.5-5.1)
[2021-08-29 13:59] LABS: ALBUMIN 3.2 g/dL (3.4-5.0); DIRECT BILIRUBIN 0.1 mg/dL (<0.1-0.2); TOTAL BILIRUBIN 0.5 mg/dL (0.2-1.0); TOTAL PROTEIN 7.1 g/dL (6.4-8.2)
[2021-08-29] MEDS ORDERED: PEPCID20 MG PO (14:08)
[2021-08-29] MEDS ORDERED: ZOFRAN ODT4 MG PO (14:08)
[2021-08-29 14:29] VITALS: BP 162/101
== END 2021-08-29 14:29 | disposition home or self-care (01) ==
LOC: ER 11:35
PROVIDERS: Student in an Organized Health Care Education/Training Program
DX: R10.816 Epigastric abdominal tenderness (principal); Z90.49 Acquired absence of other specified parts of digestive tract; Z79.899 Other long term (current) drug therapy

== ENCOUNTER 2021-09-04 10:59 | Emergency (ER) | payer OTHER ==
[~2021-09-04] VITALS: Ht 172.7 cm; Wt 89.4 kg
[~2021-09-04 10:59] MED LIST changes: +AMITRIPTYLINE H25 M3 PO; +PEPCID20 MG PO
[2021-09-04 12:09] LABS: URINE BILIRUBIN NEGATIVE (Negative); URINE BLOOD 3+ (Negative); URINE COLOR YELLOW; URINE GLUCOSE-RANDOM* NEGATIVE (Negative); URINE KETONES 1+ (Negative); URINE LEUKOCYTES-REFLEX NEGATIVE (Negative); URINE NITRITE-REFLEX NEGATIVE (Negative); URINE PROTEIN (DIPSTICK) TRACE (Negative); URINE SPECIFIC GRAVITY >= 1.030 (1.005-1.035)
[2021-09-04 12:10] LABS: URINE CLARITY SL HAZY
[2021-09-04 12:19] LABS: CASTS None Seen /LPF (None Seen); MUCUS >6 Heavy strn/LPF (None Seen)
[2021-09-04 12:20] LABS: SQUAMOUS 4-10 Moderate /LPF (0-3)
[2021-09-04 12:21] LABS: BACTERIA-REFLEX 1-9 Few /HPF (None Seen); CRYSTALS None Seen /LPF (None Seen); URINE RBC >20 Many /HPF (NONE SEEN); URINE WBC-REFLEX 0-5 Rare /HPF (0-5)
[2021-09-04 13:17] LABS: BASOPHILS 0.8 % (0.0-2.0); EOSINOPHILS 0.4 % (0.0-3.0); HEMATOCRIT 36.8 % (37.0-47.0); HEMOGLOBIN 12.8 gm/dL (12.0-15.0); LYMPHOCYTES 37.5 % (24.0-44.0); MCH 29.6 pg (26.0-34.0); MCHC 34.7 g/dL (28.0-37.0); MCV 85.3 fL (80.0-100.0); MONOCYTES 7.4 % (1.0-8.0); PLATELET COUNT 330 thou/uL (150-400); POLYS 53.9 % (36.0-66.0); RBC 4.32 mil/uL (4.20-5.00); WBC 9.3 thou/uL (4.0-11.0)
[2021-09-04 13:27] LABS: CALCIUM 9.3 mg/dL (8.5-10.1); CREATININE 0.6 mg/dL (0.6-1.0)
[2021-09-04 13:38] LABS: ALBUMIN 3.4 g/dL (3.4-5.0); TOTAL BILIRUBIN 0.3 mg/dL (0.2-1.0); TOTAL PROTEIN 7.8 g/dL (6.4-8.2)
[2021-09-04 14:09] LABS: AMP/METHAMP Negative (Negative); BARBITURATES Negative (Negative); BENZODIAZEPINES Negative (Negative); COCAINE Negative (Negative); METHADONE Negative (Negative); OPIATES Negative (Negative); PCP Negative (Negative)
[2021-09-04] MEDS ORDERED: COMPAZINE10 M2 PO (14:23)
[2021-09-04] MEDS ORDERED: CARAFATE 11 GM/10 M1 PO (14:23)
[2021-09-04] MEDS ORDERED: BENTYL 10 MG CA10 MG PO (14:23)
[2021-09-04 14:39] VITALS: BP 139/105
--- NOTE | 2021-09-05 08:10 | EKG ---
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 And Former: FANTA : 1980 Requested By: Tracy Nava Order Number: [id number] MD: Sterling Villanueva Measurements Intervals [place] Rate: 77 P: 33 ID: 152 QRS: 19 QRSD: 74 T: 16 QT: 378 QTc: 428 Interpretive Statements Sinus rhythm Compared to ECG 02/04/2021 21:39:03 Sinus tachycardia no longer present ST (T wave) deviation no longer present Electronically Signed On 09-05-2021 8:09:36 HAND STAPLER by Sterling Villanueva [email or web address] <ELECTRONICALLY SIGNED> By: Sterling Villanueva MD, [facility] 09/05/21 0809 D: 02/1254 1255 Sterling Villanueva MD, FACC /EPI
== END 2021-09-04 14:39 | disposition home or self-care (01) ==
LOC: ER 10:59
PROVIDERS: Emergency Medicine; Physician Assistant
DX: G89.29 Other chronic pain (principal); R10.13 Epigastric pain; R11.2 Nausea with vomiting, unspecified; Z79.899 Other long term (current) drug therapy; Z90.89 Acquired absence of other organs